=== PATIENT | male | born 1945 | race Caucasian/White ===

== ENCOUNTER → 2023-11-09 | Outpatient (CLI) | payer OTHER, SELFPAY ==
--- NOTE | 2023-11-09 10:15 | RAD_ITS ---
EXAM: XR CHEST, 2 VIEWS CLINICAL INDICATION: ASBESTOSIS TECHNIQUE: Frontal and lateral views of the chest. COMPARISON: No relevant prior studies available. FINDINGS: LUNGS AND PLEURAL SPACES: There is no visible calcified pleural plaque. Double density appearance along the right hemidiaphragm on the lateral view appears to be due to mild anterior diaphragm eventration the lateral view which creates or effusions. No visible pulmonary nodules. No pneumothorax. HEART: Unremarkable. Cardiac silhouette not enlarged. MEDIASTINUM: Central airways and mediastinal contour are unremarkable. BONES/JOINTS: There is old healed left posterior-lateral fifth rib fracture with minimal contour deformity. Multilevel right thoracic spondylosis. SOFT TISSUES: Unremarkable. RAD/Chest PA and Lateral IMPRESSION: No acute intrathoracic abnormality. No calcified or other pleural plaques or parenchymal changes. Electronically Signed: Anaya Avila MD at 1:58 EDT ,
== END | disposition home or self-care (01) ==
LOC: PSN 09:32
PROVIDERS: Referring Provider Chiropractor; Visit Provider Chiropractor
DX: J61 Pneumoconiosis due to asbestos and other mineral fibers (principal)
CPT/HCPCS: 71046; 94060; 94726